=== PATIENT | male | born 1980 | race Caucasian/White ===

== ENCOUNTER 2021-06-09 07:10 | Day surgery (SDC) | payer OTHER ==
[~2021-06-09] VITALS: Ht 193 cm; Wt 93.0 kg
[2021-06-09] VITALS (8 sets, daily range): BP systolic 124–147; BP diastolic 81–98
--- NOTE | 2021-06-09 07:30 | NUR ---
PATIENT AMBULATORY TO ROOM. PATIENT IS ALERT AND ORIENTED X3. VS OBTAINED. DR MANN NOTIFIED. NEW ORDERS RECEIVED. CONSENT OBTAINED. ADMISSION ASSESSMENT COMPLETED AT THIS TIME. IV ESTABLISHED. LABS OBTAINED AND SENT FOR REFERENCE. ORIENTED RANDOLPH TO ROOM AND UNIT. CALL LIGHT IN REACH. WILL CONTINUE TO MONITOR.
[2021-06-09] MEDS ORDERED: ZYRTEC10 MG PO (08:51)
[2021-06-09] MEDS ORDERED: SUBOXONE1 MI1 SL (08:52)
[2021-06-09 09:21] LABS: HEMATOCRIT 39.6 % (39.0-50.0); HEMOGLOBIN 12.7 g/dl (14.0-18.0); IMMATURE GRANULOCYTES 0.2 % (0.0-5.0); MEAN CORPUSCULAR HGB 28.5 pG CALC (26.0-32.0); MEAN CORPUSCULAR HGB CONC 32.1 g/dL CAL (32.0-36.0); NEUT# 2.86 thou/uL (1.82-7.42); RED BLOOD COUNT 4.45 mill/uL (4.70-6.10)
--- NOTE | 2021-06-09 09:56 | NUR ---
vital signs obtained. dr alba notified. new orders received. will medicate per orders. dr alba at bedside.
[2021-06-09 11:36] LABS: ALBUMIN 4.6 g/dL (3.2-5.0); ALKALINE PHOSPHATASE 73 u/l (38-126); ANION GAP 14 (6-22 (CALC)); BILIRUBIN, TOTAL 0.5 mg/dL (0.0-1.4); BUN 26 mg/dL (9-20); BUN/CREATININE RATIO 30 (12-20 (CALC)); CARBON DIOXIDE 28 mmol/l (22-30); CHLORIDE 99 mmol/l (95-108); CREATININE 0.9 mg/dL (0.7-1.3); GFR > 60 ML/MIN (>=60 (CALC)); GFR FOR AFR.AMER. > 60 ML/MIN (>=60 (CALC)); POTASSIUM 3.7 mmol/l (3.5-5.1); SGOT/AST 38 u/l (17-59); SODIUM 137 mmol/l (137-146); TOTAL PROTEIN 7.3 g/dL (6.3-8.2)
--- NOTE | 2021-06-09 12:00 | NUR ---
PATIENT TO ANR PROCEDURE VIA BED
--- NOTE | 2021-06-09 17:00 | NUR ---
RECEIVED REPORT FROM BRYANT SHIPLEY RN AT THIS TIME. PATIENT ARRIVED VIA BED SLEEPING AT THIS TIME RESPIRATIONS EASY AND UNLABORED VITAL SIGNS TAKEN SEE INTERVENTIONS TEMP.97.0 PULSE 51 RESP. 22 BP 141/91 BRYANT INGRAM STATES THAT DURING PROCEEDURE PATIENT WAS SINUS YENNY RUNNING IN THE 50'S NO TELE ORDERED FOR PATIENT. PATIENT ARRIVED WITH K-CHON 100ML BAG/20MEQ RUNNING AT 50ML'S PER HOUR. PATINET LUNG GUAJARDO ARE CLEAR. BED ALARM ON AT THIS TIME. SUCTION SET UP IN ROOM. SIDERAILS ARE UP X 2 CALL LIGHT WITHIN REACH. WILL CONTINUE TO MONTIOR.
--- NOTE | 2021-06-09 18:55 | NUR ---
KELLE RECEIVED FROM NATALY RECIO.
--- NOTE | 2021-06-09 20:06 | NUR ---
ASSESSMENT COMPLETE. PATIENT LYING IN BED, A LITTLE RESTLESS. DENIES PAIN AT THIS TIME. BED IN LOW POSITION, LOCKED. BED ALARM ACTIVATED. CALL LIGHT WITHIN.
--- NOTE | 2021-06-09 23:14 | NUR ---
PATIENT REMAINS RESTLESS. GARBLED SPEECH. CATAPRES AND KLONIPIN ADMINISTERED. NO DISTRESS NOTED AT THIS TIME.
[2021-06-10 04:00] VITALS: BP 150/76
--- NOTE | 2021-06-10 04:00 | NUR ---
PATIENT FIDGETING WITH BLANKETS. HAS BEEN RESTLESS MOST OF THE NIGHT. PULLED IV FROM LEFT HAND 18G, CATHETER INTACT. PATIENT DENIES PAIN AT THIS TIME. CALL LIGHT WITHIN REACH.
[2021-06-10 05:51] LABS: ALBUMIN 4.5 g/dL (3.2-5.0); ALKALINE PHOSPHATASE 76 u/l (38-126); ANION GAP 15 (6-22 (CALC)); BUN 16 mg/dL (9-20); BUN/CREATININE RATIO 19 (12-20 (CALC)); CARBON DIOXIDE 24 mmol/l (22-30); CHLORIDE 103 mmol/l (95-108); CREATININE 0.8 mg/dL (0.7-1.3); GFR > 60 ML/MIN (>=60 (CALC)); GFR FOR AFR.AMER. > 60 ML/MIN (>=60 (CALC)); POTASSIUM 3.9 mmol/l (3.5-5.1); SGOT/AST 43 u/l (17-59); SODIUM 138 mmol/l (137-146); TOTAL PROTEIN 7.2 g/dL (6.3-8.2)
[2021-06-10 05:52] LABS: BILIRUBIN, TOTAL 0.9 mg/dL (0.0-1.4)
[2021-06-10 07:30] VITALS: BP 148/80
--- NOTE | 2021-06-10 07:30 | NUR ---
PATIENT LAYING IN BED AWAKE AND MUMBLING WHEN ASKED HIS NAME AND PLACE HE WAS HE ANSWERED CORRECTLY AND IS ALERT AND ORIENTED X 3. EVENT MARKETING REPRESENTATIVE DONE AT THIS TIME SEE INTERVENTIONS. PATIENT ASSISTED TO BATHROOM AND BM NOTED SEE INTERVENTIONS. SIDERAILS ARE UP X 3 AND CALL LIGHT IS WITHIN REACH PATIENT DENIES ANY PAIN OR NEEDS CURRENTLY.
[2021-06-10] MEDS ORDERED: CLONIDINE0.1 MG PO (11:25)
[2021-06-10] MEDS ORDERED: KLONOPIN0.5 M1 PO (11:31)
--- NOTE | 2021-06-10 11:37 | NUR ---
PATIENT RESTING IN BED AT THIS TIME. LUNCH IS AT BEDSIDE AND PATIENT REMINDED TO GET UP AND EAT. PATIENT STATE HE WOULD. SIDERAILS ARE UP X3 AND CALL LIGHT IS WIHTIN REACH.
--- NOTE | 2021-06-10 12:46 | NUR ---
PATIENT HAS BEEN D/C AND INSTRUCTIONS GIVEN BY ANR NURSE AT THIS TIME.
--- NOTE | 2021-06-10 13:01 | NUR ---
Discharge instructions given. Patient verbalizes understanding of same. Discharged in stable condition via Ambulatory to Home with *Other. All belongings sent with pt. PATIENT WALKED OUT BY ANR NURSE VALLES.
== END 2021-06-10 13:01 | disposition home or self-care (01) | DRG 897 ==
LOC: ANR 07:10 → MS2 07:16 → ANR 13:17
PROVIDERS: ATTEND Anesthesiology
DX: F11.20 Opioid dependence, uncomplicated (principal)
CPT/HCPCS: J2060; J2354; J3475